=== PATIENT | female | born 1945 | race Caucasian/White ===

== ENCOUNTER 2023-07-26 13:40 | Day surgery (SDC) | payer OTHER ==
[2023-07-26] MEDS: FERRIC CARBOXYMALTOSE 750 MG in SODIUM CHLORIDE 250 ML IVPB ONE (15:22)
[2023-07-26] MEDS: CYANOCOBALAMIN (VITAMIN B-12) 1000 MCG/1 ML VIAL SQ ONE (15:23)
[2023-07-26 18:00] VITALS: RESP 16; TEMP 98.2
[2023-07-26 18:02] VITALS: BP 125/53; PULSE 82
== END 2023-07-26 16:30 | disposition home or self-care (01) ==
LOC: JONCNONCHE 13:40
PROVIDERS: ATTEND Internal Medicine Hematology & Oncology
PROC: 3E033GC Introduction of Other Therapeutic Substance into Peripheral Vein, Percutaneous Approach (ICD-10-PCS; principal; 2023-07-26)
DX: D64.9 Anemia, unspecified (principal)
CPT/HCPCS: 96365; J1439

== ENCOUNTER 2023-08-02 12:00 | Day surgery (SDC) | payer OTHER ==
[2023-08-02] MEDS: FERRIC CARBOXYMALTOSE 750 MG in SODIUM CHLORIDE 250 ML IVPB ONE (12:26)
[2023-08-02] MEDS: CYANOCOBALAMIN (VITAMIN B-12) 1000 MCG/1 ML VIAL IM ONE (12:27)
[2023-08-02 16:50] VITALS: BP 115/51; PULSE 98; RESP 20; TEMP 97.8
== END 2023-08-02 13:29 | disposition home or self-care (01) ==
LOC: J7W 12:00 → JONCNONCHE 12:00
PROVIDERS: ATTEND Internal Medicine Hematology & Oncology
PROC: 3E033GC Introduction of Other Therapeutic Substance into Peripheral Vein, Percutaneous Approach (ICD-10-PCS; principal; 2023-08-02)
DX: D64.9 Anemia, unspecified (principal)
CPT/HCPCS: 96365; J1439